=== PATIENT | female | born 1985 | race Two or more races ===

== ENCOUNTER 2023-04-29 20:27 | Emergency (ER) | payer MEDICAID ==
[~2023-04-29] VITALS: Ht 175.3 cm; Wt 72.6 kg
[2023-04-29 20:36] VITALS: BP 123/88; PULSE 118; RESP 20; O2SAT 94
== END 2023-04-29 20:52 | disposition left against medical advice (07) ==
LOC: EDBD 20:27 → ER 20:27 → EDUNIT# 20:27 → ER 20:52
DX: F41.9 Anxiety disorder, unspecified (principal); Z53.21 Procedure and treatment not carried out due to patient leaving prior to being seen by health care provider